=== PATIENT | female | born 1965 | race Hispanic/Latino ===

== ENCOUNTER → 2025-04-01 | Day surgery (SDC) | payer OTHER ==
[~2025-04-01] MED LIST: ACETAMINOPHEN325 M1 PO; ALENDRONATE SOD70 MG PO; FENTANYL CITRATE/PF 100MCG/2 ML INJ ONE; GABAPENTIN600 MG PO; HYOSCYAMINE SULFATE 0.5 MG/ML INJ ONE; METHOCARBAMOL750 MG PO; PROPOFOL IV EMULSION 10 MG/ML 20 ML VIAL ONE; VIT D3 PO
[2025-04-01] MEDS: LACTATED RINGER'S 1,000 ML ONE (11:55)
[2025-04-01 14:03] VITALS: BP 126/77; PULSE 84; RESP 17; O2SAT 97
== END | disposition home or self-care (01) ==
LOC: OR 11:07
PROVIDERS: ATTEND Internal Medicine Gastroenterology
DX: Z12.11 Encounter for screening for malignant neoplasm of colon (principal); K64.8 Other hemorrhoids; Z87.442 Personal history of urinary calculi; M81.0 Age-related osteoporosis without current pathological fracture; Z01.810 Encounter for preprocedural cardiovascular examination
CPT/HCPCS: 45378; 93005; J1980; J2704; J3010; J7121

== ENCOUNTER → 2025-04-17 | Day surgery (SDC) | payer OTHER ==
[~2025-04-17] MED LIST changes: -FENTANYL CITRATE/PF 100MCG/2 ML INJ ONE; +LIDOCAINE HCL 2% LOCAL INJ 5 ML SDV VIAL INJ ONE
[2025-04-17] MEDS: LACTATED RINGER'S 1,000 ML ONE (13:16)
[2025-04-17 14:30] VITALS: TEMP 97.8
[2025-04-17 15:00] VITALS: BP 101/78; PULSE 85; RESP 15; O2SAT 98
== END | disposition home or self-care (01) ==
LOC: OR 12:46
PROVIDERS: ATTEND Internal Medicine Gastroenterology
DX: Z12.11 Encounter for screening for malignant neoplasm of colon (principal); D12.3 Benign neoplasm of transverse colon; K64.8 Other hemorrhoids; K80.20 Calculus of gallbladder without cholecystitis without obstruction; K59.09 Other constipation; R14.0 Abdominal distension (gaseous); Z71.3 Dietary counseling and surveillance; Z68.24 Body mass index [BMI] 24.0-24.9, adult; G89.29 Other chronic pain; M54.9 Dorsalgia, unspecified; M54.2 Cervicalgia; Z79.899 Other long term (current) drug therapy
CPT/HCPCS: 45385; J1980; J2003; J2704; J7121; 45378

== ENCOUNTER → 2025-06-17 | Outpatient (REF) | payer OTHER ==
[~2025-06-17] MED LIST changes: -HYOSCYAMINE SULFATE 0.5 MG/ML INJ ONE; -LIDOCAINE HCL 2% LOCAL INJ 5 ML SDV VIAL INJ ONE; -PROPOFOL IV EMULSION 10 MG/ML 20 ML VIAL ONE
== END ==
LOC: NM 08:09
PROVIDERS: ATTEND Nurse Practitioner
DX: K80.20 Calculus of gallbladder without cholecystitis without obstruction (principal)
CPT/HCPCS: 78226; A9537